=== PATIENT | male | born 1990 | race Caucasian/White ===

== ENCOUNTER 2016-08-11 23:15 | Emergency (ER) | payer MEDICAID ==
[~2016-08-11] VITALS: Ht 170.2 cm; Wt 87.3 kg
[2016-08-12] MEDS ORDERED: [UNRECOGNIZED DRUG - CODE] PO (00:19)
[2016-08-12] MEDS ORDERED: IBUP-2070 PO (00:19)
[2016-08-12] MEDS ORDERED: HYDROCODONE/ACETAMINOPHEN 5-325 MG TABLET PO ONE (02:45)
[2016-08-12] MEDS ORDERED: BACITRACIN 0.9 GM PACKET OINTMENT TP ONE (02:45)
[2016-08-12 04:05] VITALS: BP 120/77
== END 2016-08-12 04:36 | disposition home or self-care (01) ==
LOC: EMS 23:17
DX: L03.032 Cellulitis of left toe (principal); F17.210 Nicotine dependence, cigarettes, uncomplicated
CPT/HCPCS: 99283